=== PATIENT | male | born 1990 | race Caucasian/White ===

== ENCOUNTER → 2019-06-18 | Emergency (ER) | payer SELFPAY, OTHER ==
[2019-06-18] MEDS: DIPHTH/TET/ACEL PERTUSS (ADULT) 0.5 ML VIAL IM* (20:33)
[2019-06-18] MEDS: IBUPROFEN 800 MG TAB PO (20:37)
== END | disposition home or self-care (01) ==
LOC: FTE 18:41
DX: S61.231A Puncture wound without foreign body of left index finger without damage to nail, initial encounter (principal); S61.233A Puncture wound without foreign body of left middle finger without damage to nail, initial encounter; W29.4XXA Contact with nail gun, initial encounter; Y92.9 Unspecified place or not applicable; Z23 Encounter for immunization
CPT/HCPCS: 73130; 73130-LT; 90471; 90715; 99283-25